=== PATIENT | male | born 1980 | race African-American/Black ===

== ENCOUNTER 2017-08-05 13:56 | Emergency (ER) | payer MEDICAID ==
[2017-08-05] MEDS ORDERED: LORAZEPAM 1 MG TABLET PO ONE (14:52)
--- NOTE | 2017-08-05 14:54 | ER Document Report ---
ED Medical Screen (RME) - General Chief Complaint: Chest Pain Stated Complaint: HEADACHE Time Seen by Provider: 08/05/17 14:45 Notes: RME DISCLOSURE I have seen this patient as part of a Rapid Medical Evaluation and, if applicable, placed any initially appropriate orders. The patient will be seen and fully evaluated, including a full history and physical exam, by a provider ( in Main ED or Fast Track) when a room becomes available. 36-year-old male here with complaints of midsternal nonradiating constant chest pain shortness of breath lightheadedness ongoing for the past 2 weeks. He states that initially the symptoms were occurring once every other day but have been increasing in frequency and today has been constant since he woke up approximately 8 hours ago. Symptoms are not worse with exertion or breathing. Symptoms improve with laying on his right side. He just moved here and does not have a doctor in the area so he has not seen a PCP about this. He does state that he is feeling a bit anxious. - Related Data Allergies/Adverse Reactions: No Known Allergies Allergy (Unverified 08/05/17 13:58) Physical Exam - Vital signs Vitals: Temp Pulse Resp BP Pulse Ox 98.7 F 102 H 20 166/101 H 97 08/05/17 14:10 08/05/17 14:10 08/05/17 14:10 08/05/17 14:10 08/05/17 14:10 Course - Vital Signs Vital signs: Temp Pulse Resp BP Pulse Ox 98.7 F 102 H 20 166/101 H 97 08/05/17 14:10 08/05/17 14:10 08/05/17 14:10 08/05/17 14:10 08/05/17 14:10
--- NOTE | 2017-08-05 15:22 | RADIOLOGY REPORT (SQ) ---
EXAM DESCRIPTION: CHEST PA/LAT COMPLETED DATE/TIME: 08/05/2017 3:10 pm REASON FOR STUDY: CP SOB COMPARISON: None. EXAM PARAMETERS: NUMBER OF VIEWS: two views TECHNIQUE: Digital Frontal and Lateral radiographic views of the chest acquired. RADIATION DOSE: NA LIMITATIONS: none FINDINGS: LUNGS AND PLEURA: No opacities, masses or pneumothorax. No pleural effusion. MEDIASTINUM AND HILAR STRUCTURES: No masses or contour abnormalities. HEART AND VASCULAR STRUCTURES: Heart size is borderline. There is no evidence of failure. BONES: No acute findings. HARDWARE: None in the chest. OTHER: No other significant finding. IMPRESSION: Borderline heart size with no evidence of failure. TECHNICAL DOCUMENTATION: JOB ID: [id number] [employer]- All Rights Reserved Reading location - IP/workstation name: [email or web address]
[2017-08-05 15:49] LABS: ABSOLUTE BASOPHILS # (AUTO) 0.1 10^3/uL (0.0-0.2); ABSOLUTE EOSINOPHILS # (AUTO) 0.2 10^3/uL (0.0-0.6); ABSOLUTE LYMPHOCYTES (AUTO) 0.3 10^3/uL (0.5-4.7); ABSOLUTE MONOCYTES (AUTO) 0.3 10^3/uL (0.1-1.4); ABSOLUTE NEUT (AUTO) 3.5 10^3/uL (1.7-8.2); BASOPHILS % (AUTO) 2.1 % (0-2); EOSINOPHILS % (AUTO) 4.4 % (0-6); HEMATOCRIT 44.3 % (37.9-51.0); HEMOGLOBIN 14.7 g/dL (13.5-17.0); LYMPHOCYTES % (AUTO) 6.1 % (13-45); MEAN CORPUSCULAR HEMOGLOBIN 28.2 pg (27.0-33.4); MEAN CORPUSCULAR HGB CONC 33.1 g/dL (32.0-36.0); MEAN CORPUSCULAR VOLUME 85 fl (80-97); PLATELET COUNT 124 10^3/uL (150-450); RED CELL DISTRIBUTION WIDTH 14.1 % (11.5-14.0); SEGMENTED NEUTROPHILS % (AUTO) 79.4 % (42-78); TOTAL CELLS COUNTED % (AUTO) 100 %; WHITE BLOOD COUNT 4.4 10^3/uL (4.0-10.5)
[2017-08-05 16:07] LABS: ANION GAP 9 (5-19); BLOOD UREA NITROGEN 19 mg/dL (7-20); CALCIUM 9.5 mg/dL (8.4-10.2); CARBON DIOXIDE 31 mmol/L (22-30); CHLORIDE 102 mmol/L (98-107); GLUCOSE 92 mg/dL (75-110); POTASSIUM 4.7 mmol/L (3.6-5.0); SODIUM 141.8 mmol/L (137-145)
--- NOTE | 2017-08-05 17:22 | EKG REPORT ---
SEVERITY:- ABNORMAL ECG - SINUS TACHYCARDIA CONSIDER LEFT VENTRICULAR HYPERTROPHY : Confirmed by: Constantine Andrea MD 05-Aug-2017 17:21:41
--- NOTE | 2017-08-05 17:39 | ER Document Report ---
ED General - General Mode of Arrival: Ambulatory Information source: Patient <STACIECHARI GEE - Last Filed: 08/05/17 18:29> <AURE LEBRON - Last Filed: 08/11/17 07:04> - General Chief Complaint: Chest Pain Stated Complaint: HEADACHE Time Seen by Provider: 08/05/17 14:45 Notes: Patient is a 36-year-old male that presents to the emergency department today with complaints of chest pain with associated shortness of breath that began this morning upon awakening. Patient states he has a history of anxiety with associated panic attacks and is unsure if this could be causing his symptoms. Patient describes his pain as a pressure that is located in the center of his chest and is non-radiating. Patient mentions that he recently moved here and has been out of his Klonopin and lisinopril for around 2 weeks as he has no doctor here to refill it. Patient denies history of CVA, history of MA, cough, or congestion. (CHARI QUINONES) - Related Data Allergies/Adverse Reactions: No Known Allergies Allergy (Unverified 08/05/17 13:58) Past Medical History - General Information source: Patient - Social History Smoking Status: Never Smoker Cigarette use (# per day): No Chew tobacco use (# tins/day): No Frequency of alcohol use: Occasional Drug Abuse: None Lives with: Family Family History: Reviewed & Not Pertinent Patient has suicidal ideation: No Patient has homicidal ideation: No - Past Medical History Cardiac Medical History: Reports: Hx Hypertension Surgical Hx: Negative <CHARI QUINONES - Last Filed: 08/05/17 18:29> Review of Systems - Review of Systems Constitutional: No symptoms reported EENT: denies: Nose congestion Cardiovascular: See HPI, Chest pain Respiratory: See HPI, Short of breath. denies: Cough Gastrointestinal: No symptoms reported Genitourinary: No symptoms reported Male Genitourinary: No symptoms reported Musculoskeletal: No symptoms reported Skin: No symptoms reported Hematologic/Lymphatic: No symptoms reported Neurological/Psychological: See HPI, Anxiety -: Yes All other systems reviewed and negative <CHARI QUINONES - Last Filed: 08/05/17 18:29> Physical Exam <CHARI QUINONES - Last Filed: 08/05/17 18:29> <AURE LEBRON - Last Filed: 08/11/17 07:04> - Vital signs Vitals: Temp Pulse Resp BP Pulse Ox 98.7 F 102 H 20 166/101 H 97 08/05/17 14:10 08/05/17 14:10 08/05/17 14:10 08/05/17 14:10 08/05/17 14:10 - Notes Notes: Physical Exam: General: Alert, appears well. HEENT: Normocephalic. Atraumatic. PERRL. Extraocular movements intact. Oropharynx clear. Neck: Supple. Non-tender. Respiratory: No respiratory distress. Clear and equal breath sounds bilaterally. Cardiovascular: Tachycardic, regular rhythm. Abdominal: Obese. Non-tender. No distension. Normal Bowel Sounds. Back: Non-tender. No deformity or step off. Extremities: Moves all four extremities. Upper extremities: Normal inspection. Normal ROM. Lower extremities: Normal inspection. No edema. Normal ROM. Neurological: Normal cognition. AAOx4. Normal speech. Psychological: Normal affect. Normal Mood. Skin: Warm. Dry. Normal color. (CHARI QUINONES) Course - Laboratory Result Diagrams: 08/05/17 15:25 08/05/17 15:25 <CHARI QUINONES - Last Filed: 08/05/17 18:29> - Laboratory Result Diagrams: 08/05/17 15:25 08/05/17 15:25 <AURE LEBRON - Last Filed: 08/11/17 07:04> - Re-evaluation Re-evalutation: 08/05/17 18:51 Patient well-appearing in no acute distress. On reevaluation several times patient is on phone and asymptomatic. However, patient does show tachycardia on monitor. D-dimer was performed which is positive pending CT at this time. If negative will be discharged with community clinic referral follow-up. Patient has normal troponin no concerning findings on EKG. His pain had been constant since this morning up to like 1 troponin is necessary. He also has a history of anxiety and is no longer taking his Klonopin for several weeks. I will prescribe Vistaril for an anxiety lytic until further follow-up outpatient can be performed. (AURE LEBRON) - Vital Signs Vital signs: Temp Pulse Resp BP Pulse Ox 98.5 F 102 H 15 148/87 H 99 08/05/17 21:19 08/05/17 14:10 08/05/17 21:19 08/05/17 21:19 08/05/17 21:19 - Laboratory Laboratory results interpreted by me: 08/05/17 08/05/17 08/05/17 15:25 15:25 15:25 RDW 14.1 H Plt Count 124 L Seg Neutrophils % 79.4 H Lymphocytes % 6.1 L Basophils % 2.1 H Absolute Lymphocytes 0.3 L D-Dimer 0.78 H Carbon Dioxide 31 H Discharge <CHARI QUINONES - Last Filed: 08/05/17 18:29> <AURE LEBRON - Last Filed: 08/11/17 07:04> - Discharge Clinical Impression: Chest pain in adult, Shortness of breath Condition: Good Disposition: HOME, SELF-CARE Instructions: Chest Pain of Unclear Cause ([facility]) Additional Instructions: Please take medications as prescribed and if symptoms are not improving in the next week please follow-up with community clinic referral or emergency department for reevaluation. You have also been prescribed an albuterol puffer please use 2-4 puffs every 4 hours for the next 2 days and then 2 puffs every 4 hours thereafter as needed Prescriptions: Hydroxyzine Pamoate [Vistaril 25 mg Capsule] 25 mg PO DAILY #30 capsule Prednisone [Deltasone 20 mg Tablet] 2 tab PO DAILY 5 Days #10 tablet Referrals: [facility] [Provider Group] - Follow up as needed Scribe Attestation: 08/11/17 07:04 I personally performed the services described in the documentation, reviewed and edited the documentation which was dictated to the scribe in my presence, and it accurately records my words and actions. (AURE LEBRON) Scribe Documentation - Scribe Written by Skyee:: Fredy Doty, 08/05/2017 1834 acting as scribe for :: Ranjeet <CHARI QUINONES - Last Filed: 08/05/17 18:29>
[2017-08-05] MEDS ORDERED: NORMAL SALINE 1000 ML 1,000 ML IV ONE (18:10)
[2017-08-05] MEDS ORDERED: ALBUTEROL SULFATE HFA (90 MCG/PUFF) 8 GM MDI (1 MDI/ER DISP) IH PRN (18:58)
--- NOTE | 2017-08-05 19:48 | RADIOLOGY REPORT (SQ) ---
EXAM DESCRIPTION: CTA CHEST COMPLETED DATE/TIME: 08/05/2017 7:13 pm REASON FOR STUDY: SOB, elevated d-dimer COMPARISON: None. TECHNIQUE: CT scan of the chest performed using helical scanning technique with dynamic intravenous contrast injection. Images reviewed with lung, soft tissue and bone windows. Reconstructed coronal and sagittal MPR images reviewed. Additional 3 dimensional post-processing performed to develop Maximal Intensity Projection images (MT P). All images stored on PACS. All CT scanners at this facility use dose modulation, iterative reconstruction, and/or weight based d osing when appropriate to reduce radiation dose to as low as reasonably achievable (ALARA). [facility]: Dose Right [facility]: CareDose [facility]: Dose Right [facility]: Teradose 4D [facility]: Billogram CONTRAST TYPE AND DOSE: contrast/concentration: Isovue 370.00 mg/ml; Total Contrast Delivered: 86.0 ml; Total Saline Delivered: 75.0 ml Contrast bolus adequate for pulmonary arteries and aorta. RENAL FUNCTION: BUN 19 creatinine 0.98. RADIATION DOSE: CT Rad equipment meets quality standard of care and radiation dose reduction techniq ues were employed. CTDIvol: 36.1 - 46.3 mGy. DLP: 1382 mGy-cm. . LIMITATIONS: None. FINDINGS: LUNGS AND PLEURA: No masses, infiltrates, pneumothorax. No pleural effusions, calcificati ons. AORTA AND GREAT VESSELS: No aneurysm. No dissection. HEART: No pericardial effusion. No significant coronary artery calcifications. PULMONARY ARTERIES: No emboli visualized in the main pulmonary arteries or the segmental branches. HILAR AND MEDIASTINAL STRUCTURES: No identified masses or abnormal nodes. HARDWARE: None in the chest. UPPER ABDOMEN: No significant findings. Limited exam. THYROID AND OTHER SOFT TISSUES: No masses. No adenopathy. BONES: No acute or significant finding. 3D MIPS: Confirm above findings. OTHER: No other significant finding. IMPRESSION: NORMAL CTA OF THE CHEST. NO PULMONARY EMBOLI. COMMENT: Quality ID # [id number]: Final reports with documentation of one or more dose reduction techniques (e.g., Automated exposure control, adjustment of the mA and/or kV according to patient size, use of iterative reconstruction technique) TECHNICAL DOCUMENTATION: JOB ID: [id number] [employer]- All Rights Reserved Reading location - IP/workstation name: [email or web address]
[2017-08-05 21:25] VITALS: BP 148/87
== END 2017-08-05 21:25 | disposition home or self-care (01) ==
LOC: ER 13:56
DX: R07.89 Other chest pain (principal); F41.9 Anxiety disorder, unspecified; T42.4X6A Underdosing of benzodiazepines, initial encounter; Z91.128 Patient's intentional underdosing of medication regimen for other reason; Z91.14 Patient's other noncompliance with medication regimen; R06.02 Shortness of breath; I10 Essential (primary) hypertension; R00.0 Tachycardia, unspecified
CPT/HCPCS: 93005; 99285; 96360; 36415; 85025; 80048; 84484; 85379; 71046; 71275; 93010; J7030; J3490

== ENCOUNTER 2017-10-15 18:30 | Emergency (ER) | payer MEDICAID ==
--- NOTE | 2017-10-15 20:40 | ER Document Report ---
ED General - General Mode of Arrival: Ambulatory Information source: Patient TRAVEL OUTSIDE OF THE [place] IN LAST 30 DAYS: No <AVILA YOUSIF - Last Filed: 10/16/17 02:48> <BARTOLO VAZQUEZ - Last Filed: 10/16/17 03:34> - General Chief Complaint: Chest Pain Stated Complaint: CHEST PAIN Time Seen by Provider: 10/15/17 20:07 Notes: Patient is a 36 year old male with anxiety and hypertension presents to the emergency department complaining of multiple symptoms including heart palpitations, shortness of breath, and dizziness onset 1 week ago. He further states he mainly feels his heart racing at night. Patient mentions recently moving to [place] and has yet to establish new primary care since being here. He states he has been without Lisinopril (20 mg) and Klonopin for approximately 3 months. states she believes the patient symptoms are due to him being without his anxiety medication. Patient also reports his daughter emma scabies and states he has been itching in his arms and legs. (AVILA YOUSIF) - Related Data Allergies/Adverse Reactions: No Known Allergies Allergy (Verified 10/15/17 18:32) Past Medical History - General Information source: Patient - Social History Smoking Status: Never Smoker Frequency of alcohol use: Social Drug Abuse: None Family History: Reviewed & Not Pertinent Patient has suicidal ideation: No Patient has homicidal ideation: No - Past Medical History Cardiac Medical History: Reports: Hx Hypertension <AVILA YOUSIF - Last Filed: 10/16/17 02:48> Review of Systems - Review of Systems Constitutional: No symptoms reported EENT: No symptoms reported Cardiovascular: See HPI, Heart racing, Dizziness Respiratory: See HPI, Short of breath Gastrointestinal: No symptoms reported Genitourinary: No symptoms reported Male Genitourinary: No symptoms reported Musculoskeletal: No symptoms reported Skin: No symptoms reported Hematologic/Lymphatic: No symptoms reported Neurological/Psychological: No symptoms reported -: Yes All other systems reviewed and negative <AVILA YOUSIF - Last Filed: 10/16/17 02:48> Physical Exam - General General appearance: Appears well, Alert In distress: None - HEENT Head: Normocephalic, Atraumatic Eyes: Normal Conjunctiva: Normal Extraocular movements intact: Yes Pupils: PERRL Mucous membranes: Normal Pharynx: Normal Neck: Normal <AVILA YOUSIF - Last Filed: 10/16/17 02:48> - Abdominal Inspection: Normal Tenderness: Nontender - Extremities General upper extremity: Normal inspection, Nontender, Normal color, Normal ROM , Normal temperature General lower extremity: Normal inspection, Nontender, Normal color, Normal ROM , Normal temperature, Normal weight bearing. No: Deangelo's sign - Neurological Cognition: Normal Orientation: AAOx4 [place] Coma Scale Eye Opening: Spontaneous [place] Coma Scale Verbal: Oriented [place]oj[place] Coma Scale Motor: Obeys Commands [place] Coma Scale Total: 15 Motor strength normal: LUE, RUE, LLE, RLE - Psychological Associated symptoms: Anxious <BARTOLO VAZQUEZ - Last Filed: 10/16/17 03:34> - Vital signs Vitals: Temp Pulse Resp BP Pulse Ox 98.8 F 79 16 157/92 H 99 10/15/17 18:39 10/15/17 18:39 10/15/17 18:39 10/15/17 18:39 10/15/17 18:39 Course - Laboratory Result Diagrams: 10/15/17 19:56 10/15/17 19:56 <AVILA YOUSIF - Last Filed: 10/16/17 02:48> - Laboratory Result Diagrams: 10/15/17 19:56 10/15/17 19:56 - Diagnostic Test Radiology reviewed: Reports reviewed - EKG Interpretation by Me EKG shows normal: Sinus rhythm <BARTOLO VAZQUEZ - Last Filed: 10/16/17 03:34> - Re-evaluation Re-evalutation: 10/16/17 00:05 Patient rechecked. Patient states that he was prescribed Klonopin for a little over 2 years and has been taking his aunts Xanax for approximately 1 month. Patient states he ran out of Xanax approximately 1 week ago. (AVILA YOUSIF) Patient is a 36-year-old male with a history of high blood pressure and anxiety. Patient was given Ativan here which helped anxiety. Patient initially told me he had not been taking medication for anxiety for months and then told me that he was taking his in Xanax which he stopped over a week ago. It seems that the patient is looking to receive benzodiazepines with she will not from the emergency department. He will be given a prescription for Vistaril for anxiety. He will also have his lisinopril refilled and is to follow-up with primary care doctor. Stable for discharge. No acute findings on blood work, imaging, or EKG. (BARTOLO VAZQUEZ) - Vital Signs Vital signs: Temp Pulse Resp BP Pulse Ox 98.8 F 79 20 150/86 H 99 10/15/17 18:39 10/15/17 18:39 10/16/17 00:01 10/16/17 00:01 10/16/17 00:01 Discharge <AVILA YOUSIF - Last Filed: 10/16/17 02:48> <BARTOLO VAZQUEZ - Last Filed: 10/16/17 03:34> - Discharge Clinical Impression: Anxiety HTN (hypertension) Qualifiers: Hypertension type: unspecified Qualified Code(s): I10 - Essential (primary) hypertension Condition: Stable Disposition: HOME, SELF-CARE Instructions: Anxiety ([facility]), Family Physicians / Practices, High Blood Pressure , Requiring Treatment ([facility]) Prescriptions: Hydroxyzine Pamoate [Vistaril 25 mg Capsule] 25 mg PO TIDP PRN #30 capsule PRN Reason: Lisinopril 20 mg PO DAILY #30 tablet Permethrin [Acticin 5% Cream 60 gm] 2 applic TP ONCE PRN #7 tube PRN Reason: Forms: Parent Work Note, Return to Work Scribe Attestation: 10/16/17 03:34 I personally performed the services described in the documentation, reviewed and edited the documentation which was dictated to the scribe in my presence, and it accurately records my words and actions. (BARTOLO VAZQUEZ) Scribe Documentation - Scribe Written by Fredy:: Fredy Franks, 10/15/2017 20:58 acting as scribe for :: Lety <AVILA YOUSIF - Last Filed: 10/16/17 02:48>
[2017-10-15] MEDS ORDERED: LORAZEPAM 1 MG TABLET PO ONE (20:43)
[2017-10-15 20:59] LABS: ABSOLUTE BASOPHILS # (AUTO) 0.1 10^3/uL (0.0-0.2); ABSOLUTE EOSINOPHILS # (AUTO) 0.2 10^3/uL (0.0-0.6); ABSOLUTE LYMPHOCYTES (AUTO) 1.1 10^3/uL (0.5-4.7); ABSOLUTE MONOCYTES (AUTO) 0.6 10^3/uL (0.1-1.4); ABSOLUTE NEUT (AUTO) 4.4 10^3/uL (1.7-8.2); HEMATOCRIT 46.1 % (37.9-51.0); HEMOGLOBIN 15.4 g/dL (13.5-17.0); LYMPHOCYTES % (AUTO) 17.6 % (13-45); MEAN CORPUSCULAR HEMOGLOBIN 28.4 pg (27.0-33.4); MEAN CORPUSCULAR HGB CONC 33.4 g/dL (32.0-36.0); MEAN CORPUSCULAR VOLUME 85 fl (80-97); MONOCYTES % (AUTO) 8.9 % (3-13); RED BLOOD COUNT 5.41 10^6/uL (4.35-5.55); RED CELL DISTRIBUTION WIDTH 13.9 % (11.5-14.0); SEGMENTED NEUTROPHILS % (AUTO) 69.5 % (42-78); TOTAL CELLS COUNTED % (AUTO) 100 %; WHITE BLOOD COUNT 6.3 10^3/uL (4.0-10.5)
[2017-10-15 21:00] LABS: ALANINE AMINOTRANSFERASE 28 U/L (21-72); ALKALINE PHOSPHATASE 49 U/L (38-126); ANION GAP 10 (5-19); ASPARTATE AMINO TRANSFERASE 18 U/L (17-59); BILIRUBIN,DIRECT 0.4 mg/dL (0.0-0.4); BLOOD UREA NITROGEN 16 mg/dL (7-20); CALCIUM 9.8 mg/dL (8.4-10.2); CARBON DIOXIDE 26 mmol/L (22-30); CHLORIDE 103 mmol/L (98-107); GLUCOSE 92 mg/dL (75-110); POTASSIUM 3.9 mmol/L (3.6-5.0); SODIUM 139.2 mmol/L (137-145); TOTAL PROTEIN 7.7 g/dL (6.3-8.2)
--- NOTE | 2017-10-15 21:06 | RADIOLOGY REPORT (SQ) ---
EXAM DESCRIPTION: CHEST SINGLE VIEW COMPLETED DATE/TIME: 10/15/2017 8:54 pm REASON FOR STUDY: SOB ,CP COMPARISON: 08/05/2017 EXAM PARAMETERS: NUMBER OF VIEWS: One view. TECHNIQUE: Single frontal radiographic view of the chest acquired. RADIATION DOSE: NA LIMITATIONS: None. FINDINGS: LUNGS AND PLEURA: No acute opacities, masses or pneumothorax. No pleural effusion. MEDIASTINUM AND HILAR STRUCTURES: Stable. HEART AND VASCULAR STRUCTURES: Stable. BONES: No acute findings. HARDWARE: None in the chest. OTHER: No other significant finding. IMPRESSION: NO ACUTE RADIOGRAPHIC FINDING IN THE CHEST. TECHNICAL DOCUMENTATION: JOB ID: [id number] 2010 [employer]- All Rights Reserved Reading location - IP/workstation name: [email or web address]
[2017-10-15 21:33] LABS: PLATELET COUNT 150 10^3/uL (150-450)
[2017-10-15] MEDS ORDERED: LISINOPRIL 10 MG TABLET PO ONE (22:31)
[2017-10-15] MEDS ORDERED: CLONIDINE HCL 0.1 MG TABLET PO ONE (22:31)
--- NOTE | 2017-10-15 22:35 | EKG REPORT ---
SEVERITY:- ABNORMAL ECG - SINUS RHYTHM CONSIDER LEFT VENTRICULAR HYPERTROPHY : Confirmed by: Jeanine Bowman MD 15-Oct-2017 22:34:28
[2017-10-16 00:26] VITALS: BP 150/86
== END 2017-10-16 00:40 | disposition home or self-care (01) ==
LOC: ER 18:30
DX: F41.9 Anxiety disorder, unspecified (principal); I10 Essential (primary) hypertension; R07.9 Chest pain, unspecified; R00.2 Palpitations; R06.02 Shortness of breath; R42 Dizziness and giddiness
CPT/HCPCS: 93005; 99285; 36415; 85025; 80053; 84484; 71045; 93010; J3490

== ENCOUNTER 2017-10-31 17:37 | Emergency (ER) | payer MEDICAID, OTHER ==
--- NOTE | 2017-10-31 19:26 | RADIOLOGY REPORT (SQ) ---
EXAM DESCRIPTION: FOOT RIGHT COMPLETE COMPLETED DATE/TIME: 10/31/2017 7:14 pm REASON FOR STUDY: pain twisted COMPARISON: None. NUMBER OF VIEWS: Three views. TECHNIQUE: AP, lateral and oblique radiographic images acquired of the right foot. LIMITATIONS: None. FINDINGS: MINERALIZATION: Normal. BONES: No acute fracture or dislocation. No worrisome bone lesions. JOINTS: No effusions. SOFT TISSUES: No soft tissue swelling. No foreign body. OTHER: No other significant finding. IMPRESSION: NEGATIVE STUDY OF THE RIGHT FOOT. NO RADIOGRAPHIC EVIDENCE OF ACUTE INJURY. TECHNICAL DOCUMENTATION: JOB ID: [id number] [employer]- All Rights Reserved Reading location - IP/workstation name: [email or web address]
--- NOTE | 2017-10-31 19:26 | RADIOLOGY REPORT (SQ) ---
EXAM DESCRIPTION: ANKLE RIGHT COMPLETE COMPLETED DATE/TIME: 10/31/2017 7:14 pm REASON FOR STUDY: pain twisted COMPARISON: None. NUMBER OF VIEWS: Three views. TECHNIQUE: AP, lateral, and oblique radiographic images acquired of the right ankle. LIMITATIONS: None. FINDINGS: MINERALIZATION: Normal. BONES: No acute fracture or dislocation. No worrisome bone lesions. JOINTS: No effusions. SOFT TISSUES: Soft tissue swelling. No foreign body. OTHER: No other significant finding. IMPRESSION: SOFT TISSUE SWELLING. NO BONY FINDINGS. TECHNICAL DOCUMENTATION: JOB ID: [id number] [employer]- All Rights Reserved Reading location - IP/workstation name: [email or web address] [id number]
[2017-10-31] MEDS ORDERED: HYDROCODONE/ACETAMINOPHEN 5-325 MG (6 TAB/ER DISP) PO PRN (19:32)
--- NOTE | 2017-10-31 19:34 | ER Document Report ---
HPI - HPI Patient complains to provider of: Right ankle injury Onset: Other - 10 days ago Onset/Duration: Persistent Quality of pain: Achy Pain Level: 3 Context: Patient states he was stepping down from a deck and rolled his ankle 10 days ago. Patient complains of persistent right ankle pain but does go into his foot. Associated Symptoms: Other - Right ankle injury Exacerbated by: Standing, Movement, Walking Relieved by: Denies Similar symptoms previously: No Recently seen / treated by doctor: No - ROS ROS below otherwise negative: Yes Systems Reviewed and Negative: Yes All other systems reviewed and negative - CONSTITUTIONAL Constitutional: DENIES: Fever - GASTROINTESTINAL Gastrointestinal: DENIES: Nausea - MUSCULOSKELETAL Musculoskeletal: REPORTS: Extremity pain, Swelling - DERM Skin Color: Normal Skin Problems: None Past Medical History - General Information source: Patient - Social History Smoking Status: Never Smoker Frequency of alcohol use: Occasional Drug Abuse: None Occupation: Casting Machine Set Up Operator Family History: Reviewed & Not Pertinent - Past Medical History Cardiac Medical History: Reports: Hx Hypertension Renal/ Medical History: Denies: Hx Peritoneal Dialysis Psychiatric Medical History: Reports: Hx Anxiety Surgical Hx: Negative Vertical Provider Document - CONSTITUTIONAL Agree With Documented VS: Yes Exam Limitations: No Limitations General Appearance: WD/WN, No Apparent Distress - INFECTION CONTROL TRAVEL OUTSIDE OF THE [place] IN LAST 30 DAYS: No - HEENT HEENT: Atraumatic, Normocephalic - NECK Neck: Normal Inspection - RESPIRATORY Respiratory: Breath Sounds Normal, No Respiratory Distress - CARDIOVASCULAR Cardiovascular: Regular Rate, Regular Rhythm Pulses: Normal: Dorsalis pedis - BACK Back: Normal Inspection - MUSCULOSKELETAL/EXTREMETIES Musculoskeletal/Extremeties: MAEW, Tender - Right ankle tenderness over lateral malleolar area, Edema - 2+ to right ankle, 1+ to right foot - NEURO Level of Consciousness: Awake, Alert, Appropriate Motor/Sensory: No Motor Deficit - DERM Integumentary: Warm, Dry, No Rash Course - Vital Signs Vital signs: Temp Pulse Resp BP Pulse Ox 98.0 F 81 16 152/96 H 98 10/31/17 17:55 10/31/17 17:55 10/31/17 17:55 10/31/17 17:55 10/31/17 17:55 - Diagnostic Test Radiology reviewed: Image reviewed, Reports reviewed Procedures - Immobilization Right Ankle Pre-Proc Neuro Vasc Exam: Normal Immobilizer type: Ankle stirrup Performed by: PCT Post-Proc Neuro Vasc Exam: Normal Alignment checked and good: Yes Discharge - Discharge Clinical Impression: Right ankle sprain Qualifiers: Encounter type: initial encounter Involved ligament of ankle: unspecified ligament Qualified Code(s): S93.401A - Sprain of unspecified ligament of right ankle, initial encounter Condition: Stable Disposition: HOME, SELF-CARE Instructions: Ankle Stirrup Splint ([facility]), Use of Crutches ([facility]), Ice Packs ([facility] ), Oral Narcotic Medication ([facility]), Sprained Ankle ([facility]) Additional Instructions: Return immediately for any new or worsening symptoms Followup with your primary care provider, call tomorrow to make a followup appointment Weightbearing as tolerated Follow-up with orthopedics for further evaluation, call Friday for an appointment Forms: Return to Work Referrals: [facility] [Provider Group] - 11/03/17
[2017-10-31 20:33] VITALS: BP 168/101
== END 2017-10-31 21:09 | disposition home or self-care (01) ==
LOC: ER 17:37
DX: S93.401A Sprain of unspecified ligament of right ankle, initial encounter (principal); X50.0XXA Overexertion from strenuous movement or load, initial encounter; Y92.89 Other specified places as the place of occurrence of the external cause
CPT/HCPCS: 99283; 73610; 73630; L1902

== ENCOUNTER 2018-01-25 02:02 | Emergency (ER) | payer MEDICAID ==
[2018-01-25] MEDS ORDERED: ASPIRIN 81 MG TABLET, CHEWABLE PO ONE (02:37)
[2018-01-25 02:48] LABS: ABSOLUTE BASOPHILS # (AUTO) 0.1 10^3/uL (0.0-0.2); ABSOLUTE EOSINOPHILS # (AUTO) 0.2 10^3/uL (0.0-0.6); ABSOLUTE LYMPHOCYTES (AUTO) 1.4 10^3/uL (0.5-4.7); ABSOLUTE MONOCYTES (AUTO) 0.6 10^3/uL (0.1-1.4); ABSOLUTE NEUT (AUTO) 5.1 10^3/uL (1.7-8.2); BASOPHILS % (AUTO) 0.9 % (0-2); EOSINOPHILS % (AUTO) 2.6 % (0-6); HEMATOCRIT 45.4 % (37.9-51.0); HEMOGLOBIN 15.3 g/dL (13.5-17.0); LYMPHOCYTES % (AUTO) 18.5 % (13-45); MEAN CORPUSCULAR HEMOGLOBIN 28.4 pg (27.0-33.4); MEAN CORPUSCULAR HGB CONC 33.8 g/dL (32.0-36.0); MEAN CORPUSCULAR VOLUME 84 fl (80-97); MONOCYTES % (AUTO) 8.7 % (3-13); PLATELET COUNT 176 10^3/uL (150-450); RED CELL DISTRIBUTION WIDTH 13.9 % (11.5-14.0); SEGMENTED NEUTROPHILS % (AUTO) 69.3 % (42-78); TOTAL CELLS COUNTED % (AUTO) 100 %; WHITE BLOOD COUNT 7.4 10^3/uL (4.0-10.5)
[2018-01-25] MEDS ORDERED: LORAZEPAM INJ 2 MG/1 ML VIAL IV ONE (02:55)
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
[2018-01-25 03:07] LABS: ALANINE AMINOTRANSFERASE 8 U/L (21-72); ALBUMIN 4.3 g/dL (3.5-5.0); ALKALINE PHOSPHATASE 77 U/L (38-126); ANION GAP 11 (5-19); ASPARTATE AMINO TRANSFERASE 31 U/L (17-59); BILIRUBIN,DIRECT 0.8 mg/dL (0.0-0.4); BILIRUBIN,TOTAL 1.4 mg/dL (0.2-1.3); BLOOD UREA NITROGEN 18 mg/dL (7-20); CALCIUM 9.7 mg/dL (8.4-10.2); CARBON DIOXIDE 23 mmol/L (22-30); CHLORIDE 103 mmol/L (98-107); CREATINE KINASE 89 U/L (55-170); GLUCOSE 117 mg/dL (75-110); POTASSIUM 4.3 mmol/L (3.6-5.0); SODIUM 137.4 mmol/L (137-145); TOTAL PROTEIN 7.9 g/dL (6.3-8.2)
[2018-01-25 03:19] LABS: CREATINE KINASE MB 0.62 ng/mL (<4.55)
[2018-01-25 03:21] LABS: TROPONIN I < 0.012 ng/mL
--- NOTE | 2018-01-25 03:22 | RADIOLOGY REPORT (SQ) ---
EXAM DESCRIPTION: CHEST SINGLE VIEW COMPLETED DATE/TIME: 01/25/2018 3:16 am REASON FOR STUDY: chest pain COMPARISON: AP chest 10/16/2015, 08/05/2017 CT angio chest 08/05/2017 EXAM PARAMETERS: NUMBER OF VIEWS: One view. TECHNIQUE: Single frontal radiographic view of the chest acquired. RADIATION DOSE: NA LIMITATIONS: None. FINDINGS: LUNGS AND PLEURA: No opacities, masses or pneumothorax. No pleural effusion. MEDIASTINUM AND HILAR STRUCTURES: No masses. Contour normal. HEART AND VASCULAR STRUCTURES: Stable moderate cardiomegaly BONES: No acute findings. HARDWARE: None in the chest. OTHER: No other significant finding. IMPRESSION: Stable moderate cardiomegaly. No acute infiltrates TECHNICAL DOCUMENTATION: JOB ID: [id number] [employer]- All Rights Reserved Reading location - IP/workstation name: [email or web address]
[2018-01-25] MEDS ORDERED: ERYTHROMYCIN 0.5% OPH OINTMENT 3.5 GM (ER DISP) OD PRN (04:33)
[2018-01-25 04:40] VITALS: BP 136/79
--- NOTE | 2018-01-25 09:30 | EKG REPORT ---
SEVERITY:- ABNORMAL ECG - SINUS RHYTHM LEFT VENTRICULAR HYPERTROPHY : Confirmed by: Jn Sands 25-Jan-2018 09:29:23
== END 2018-01-25 04:51 | disposition home or self-care (01) ==
LOC: ER 02:02
DX: H10.31 Unspecified acute conjunctivitis, right eye (principal); R07.9 Chest pain, unspecified; F41.9 Anxiety disorder, unspecified; I10 Essential (primary) hypertension
CPT/HCPCS: 93005; 99285; 96374; 36415; 82553; 82550; 85025; 80053; 84484; 71045; 93010; J2060

== ENCOUNTER 2018-05-14 23:58 | Emergency (ER) | payer MEDICAID ==
[2018-05-15 00:04] VITALS: BP 168/100
[2018-05-15] MEDS ORDERED: IBUPROFEN 600 MG TABLET PO ONE ×2 (01:05→01:06)
[2018-05-15] MEDS ORDERED: METHOCARBAMOL 750 MG TABLET PO ONE ×2 (01:05→01:07)
[2018-05-15] MEDS ORDERED: ACETAMINOPHEN 325 MG TABLET PO ONE ×2 (01:05→01:06)
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
== END 2018-05-15 01:38 | disposition home or self-care (01) ==
LOC: ER 23:58
DX: M54.2 Cervicalgia (principal); I10 Essential (primary) hypertension; Z87.81 Personal history of (healed) traumatic fracture
CPT/HCPCS: 99283; J3490 ×3